=== PATIENT | male | born 1990 | race Caucasian/White ===

== ENCOUNTER → 2020-10-09 15:56 | Outpatient (CLI) | payer OTHER, SELFPAY ==
--- NOTE | 2020-10-09 16:01 | XR_ITS ---
PROCEDURE: XR FOOT WT BEARING RT 3V CLINICAL INDICATION: RT FOOT PAIN COMPARISON: No exams were available for comparison FINDINGS: No fracture or dislocation. No lytic or blastic change. There is normal mineralization. The joint spaces are well-preserved. No significant degenerative/arthritic changes. No erosive changes evident. Other findings:None. IMPRESSION: No acute findings. Dictated by: Fly Garsia MD 10/09/2020 16:24 Fly Garsia MD in [place] 10/09/2020 16:24
== END ==
PROVIDERS: PCP Physician Assistant; Visit Provider Physician Assistant
DX: M79.671 Pain in right foot (principal)
CPT/HCPCS: 73630

== ENCOUNTER → 2020-10-22 14:38 | Outpatient (CLI) | payer OTHER, SELFPAY ==
[2020-10-22 15:31] LABS: Adenovirus,PCR Not Detected (NotDetected); Bordetella Pertussis Not Detected (NotDetected); Chlamydophila Pneumoniae, PCR Not Detected (NotDetected); Coronavirus 229E Not Detected (NotDetected); Coronavirus NL63 Not Detected (NotDetected); Coronavirus OC43 Not Detected (NotDetected); Coronovirus HKU1,PCR Not Detected (NotDetected); Human Metapneumovirus Not Detected (NotDetected); Influenza A, PCR Not Detected (NotDetected); Influenza AH1, 2009 Not Detected (NotDetected); Influenza AH1, PCR Not Detected (NotDetected); Influenza AH3,PCR Not Detected (NotDetected); Influenza B, PCR Not Detected (NotDetected); Mycoplasma Pneumoniae, PCR Not Detected (NotDetected); Parainfluenza 1, PCR Not Detected (NotDetected); Parainfluenza 2, PCR Not Detected (NotDetected); Parainfluenza 3, PCR Not Detected (NotDetected); Parainfluenza 4, PCR Not Detected (NotDetected); Respiratory Syncytial Virus Not Detected (NotDetected); Rhinovirus/Enterovirus Not Detected (NotDetected)
[2020-10-22 15:41] LABS: Basophils % 0.7 % (0.1-2.0); Eosinophils # 0.1 K/mm3 (0.0-0.4); Eosinophils % 1.3 % (0.1-12.0); Hemoglobin 14.4 g/dL (14.1-18.0); Lymphocytes # 1.2 K/mm3 (0.7-4.5); Lymphocytes % 28.2 % (10-50); Mean Corpuscular HGB Conc 35.2 g/dL (31.8-35.4); Mean Corpuscular Hemoglobin 29.1 pg (27.0-31.2); Mean Corpuscular Volume 82.8 fl (80-94); Mean Platelet Volume 7.6 fl (7.4-10.4); Monocytes # 0.2 K/mm3 (0.1-1.0); Monocytes % 4.4 % (1.7-9.3); Neutrophils # 2.9 K/mm3 (1.8-7.8); Neutrophils % 65.4 % (37.0-80.0); Platelet Count 212 K/mm3 (142-424); Red Blood Count 4.95 M/mm3 (4.60-6.20); Red Cell Distribution Width 14.3 % (11.5-17.5); White Blood Count 4.4 K/mm3 (4.8-10.8)
[2020-10-23 07:03] LABS: Coronavirus 19, PCR Detected (NotDetected)
== END ==
PROVIDERS: PCP Family Medicine; Visit Provider Family Medicine
DX: Z20.822 Contact with and (suspected) exposure to COVID-19 (principal); U07.1 COVID-19
CPT/HCPCS: 36415; 85025; 87581; 87633; 87798

== ENCOUNTER → 2020-11-07 09:15 | Outpatient (CLI) | payer OTHER, SELFPAY ==
--- NOTE | 2020-11-07 09:15 | MR_ITS ---
PROCEDURE INFORMATION: Exam: MR Right Lower Extremity Other Than Joint Without and With Contrast; Foot Exam date and time: 11/07/2020 9:15 AM Age: 30 years old Clinical indication: Right; Patient HX: PT C/O lateral RT foot pain x a few months with no injury or trauma. 30 ml prohance used for contrast lot # [id number] exp 04/2023 and lot # [id number] exp 06/2022 TECHNIQUE: Imaging protocol: MR of the Right lower extremity without and with intravenous contrast. Exam focused on the foot. Contrast material: PROHANCE; Contrast volume: 30 ml; Contrast route: IV; COMPARISON: CR XR FOOT WT BEARING RT 3V 10/09/2020 4:03 PM FINDINGS: Bones and cartilage: Unremarkable. Joint spaces: Unremarkable. No joint effusion. LIGAMENTS: Lisfranc ligament: Unremarkable. No evidence of tear. TENDONS: Flexor tendons of foot: Unremarkable. No evidence of tear. Tibialis posterior tendon: Unremarkable as visualized. Peroneal tendons: Mild peroneal tenosynovitis. Mild peroneus longus tendinosis with low-grade partial-thickness intrasubstance tearing. Extensor tendons of foot: Unremarkable. No evidence of tear. Tibialis anterior tendon: Unremarkable as visualized. Tarsal canal (Sinus tarsi): Unremarkable. Tarsal tunnel: Unremarkable. Muscles: Normal muscles. Soft tissues: Lobulated ganglion cyst measuring up to 2.4 cm along the posterior articulation of the distal tibia and fibula. Plantar fascia: Unremarkable as visualized. IMPRESSION: 1. Mild peroneal tenosynovitis. Mild peroneus longus tendinosis with low-grade partial-thickness intrasubstance tearing. 2. No other significant term derangement involving the foot.
--- NOTE | 2020-11-07 09:15 | MR_ITS ---
PROCEDURE INFORMATION: Exam: MR Right Lower Extremity Joint Without and With Contrast; Ankle Exam date and time: 11/07/2020 9:15 AM Age: 30 years old Clinical indication: Ankle; Right; Patient HX: PT C/O lateral RT foot pain x a few months with no injury or trauma. 30 ml prohance used for contrast lot # [id number] exp 04/2023 and lot # [id number] exp 06/2022; Additional info: RT ankle pain TECHNIQUE: Imaging protocol: MR of the Right lower extremity without and with contrast. Exam focused on the ankle. Contrast material: PROHANCE; Contrast volume: 30 ml; Contrast route: IV; COMPARISON: CR XR FOOT WT BEARING RT 3V 10/09/2020 4:03 PM FINDINGS: Bones and cartilage: Unremarkable. Joint spaces: No joint effusion. LIGAMENTS: Distal tibiofibular syndesmosis: Unremarkable. No tear. Anterior talofibular ligament: Unremarkable. No tear. Posterior talofibular ligament: Unremarkable. No tear. Calcaneofibular ligament: Unremarkable. No tear. Deltoid ligament complex: Unremarkable. No tear. TENDONS: Flexor tendons of foot: Unremarkable as visualized. Tibialis posterior tendon: Unremarkable as visualized. Peroneal tendons: Low-grade partial-thickness tearing involving the peroneus longus tendon which shows mild tendinosis. Mild peroneal tenosynovitis. Extensor tendons of foot: Unremarkable as visualized. Tibialis anterior tendon: Unremarkable as visualized. Achilles tendon: Unremarkable as visualized. Tarsal canal (Sinus tarsi): Unremarkable. Normal signal of the fat. Tarsal tunnel: Unremarkable. Muscles: Unremarkable. Soft tissues: Ganglion cyst measuring 2.3 x 1.0 cm posterior to the articulation of the distal tibia and fibula. Plantar fascia: Plantar fascia is unremarkable. IMPRESSION: 1. Low-grade partial-thickness tearing involving the peroneus longus tendon which shows mild tendinosis. Mild peroneal tenosynovitis. 2. Ganglion cyst measuring 2.3 x 1.0 cm posterior to the articulation of the distal tibia and fibula.
== END ==
PROVIDERS: PCP Physician Assistant; Visit Provider Podiatrist
DX: M84.374A Stress fracture, right foot, initial encounter for fracture (principal); M77.51 Other enthesopathy of right foot and ankle; M79.671 Pain in right foot
CPT/HCPCS: 73720; 73723; A9576

== ENCOUNTER → 2022-05-19 16:18 | Outpatient (CLI) | payer OTHER, SELFPAY ==
--- NOTE | 2022-05-19 16:23 | XR_ITS ---
PROCEDURE INFORMATION: Exam: XR Right Foot Exam date and time: 05/19/2022 4:31 PM Age: 32 years old Clinical indication: Pain; Foot; Right; Additional info: Foot pain TECHNIQUE: Imaging protocol: Radiologic exam of the right foot. Views: 3 or more views. COMPARISON: MR FOOT RT WO/W CON 11/07/2020 9:41 AM FINDINGS: Bones/joints: There is no evidence of acute fracture.There is no evidence of malalignment or dislocation. Soft tissues: Normal. IMPRESSION: No acute findings.
--- NOTE | 2022-05-19 16:23 | XR_ITS ---
PROCEDURE INFORMATION: Exam: XR Left Ankle Exam date and time: 05/19/2022 4:31 PM Age: 32 years old Clinical indication: Pain; Foot; Additional info: Foot pain TECHNIQUE: Imaging protocol: Radiologic exam of the left ankle. Views: 3 or more views. COMPARISON: No relevant prior studies available. 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 There is no evidence of acute fracture.There is no evidence of malalignment or dislocation. Soft tissues: Normal. IMPRESSION: 1. 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 2. There is no evidence of acute fracture.There is no evidence of malalignment or dislocation.
--- NOTE | 2022-05-19 16:23 | XR_ITS ---
PROCEDURE INFORMATION: Exam: XR Left Foot Complete; Alignment Exam date and time: 05/19/2022 4:31 PM Age: 32 years old Clinical indication: Pain; Foot; Left; Additional info: Foot pain TECHNIQUE: Imaging protocol: Radiologic exam of the left foot. Views: 3 or more views. COMPARISON: No relevant prior studies available. FINDINGS: Bones/joints: There is no evidence of acute fracture.There is no evidence of malalignment or dislocation. Soft tissues: Normal. IMPRESSION: There is no evidence of acute fracture.There is no evidence of malalignment or dislocation.
--- NOTE | 2022-05-19 16:23 | XR_ITS ---
PROCEDURE INFORMATION: Exam: XR Right Ankle Exam date and time: 05/19/2022 4:31 PM Age: 32 years old Clinical indication: Pain; Foot; ; Additional info: Foot pain TECHNIQUE: Imaging protocol: Radiologic exam of the right ankle. Views: 3 or more views. COMPARISON: MR ANKLE RT WO/W CON 11/07/2020 9:41 AM FINDINGS: Bones/joints: There is no evidence of acute fracture.There is no evidence of malalignment or dislocation. Soft tissues: Normal. IMPRESSION: There is no evidence of acute fracture.There is no evidence of malalignment or dislocation.
== END ==
PROVIDERS: PCP Family Medicine; Visit Provider Nurse Practitioner Family
DX: M79.672 Pain in left foot (principal); M79.671 Pain in right foot; M72.2 Plantar fascial fibromatosis; M25.571 Pain in right ankle and joints of right foot; M25.572 Pain in left ankle and joints of left foot
CPT/HCPCS: 73610; 73630

== ENCOUNTER → 2022-08-29 15:59 | Outpatient (CLI) | payer OTHER, SELFPAY ==
--- NOTE | 2022-08-29 16:06 | XR_ITS ---
PROCEDURE INFORMATION: Exam: XR Right Ankle Exam date and time: 08/29/2022 4:15 PM Age: 32 years old Clinical indication: Pain; Ankle; Right; Patient HX: Weightbearing views. ; Additional info: Ankle pain TECHNIQUE: Imaging protocol: Radiologic exam of the right ankle. Views: 3 or more views. COMPARISON: CR XR ANKLE WT BEARING RT MIN 3V 05/19/2022 4:31 PM FINDINGS: Bones/joints: There is no evidence of acute fracture.There is no evidence of malalignment or dislocation. Soft tissues: Normal. IMPRESSION: There is no evidence of acute fracture.There is no evidence of malalignment or dislocation.
--- NOTE | 2022-08-29 16:06 | XR_ITS ---
PROCEDURE INFORMATION: Exam: XR Right Foot Complete; Alignment Exam date and time: 08/29/2022 4:15 PM Age: 32 years old Clinical indication: Pain; Foot; Right; Patient HX: Weightbearing views. ; Additional info: Foot pain TECHNIQUE: Imaging protocol: Radiologic exam of the right foot. Views: 3 or more views. COMPARISON: CR XR FOOT WT BEARING RT 3V 05/19/2022 4:31 PM FINDINGS: Bones/joints: There is no evidence of acute fracture.There is no evidence of malalignment or dislocation. Soft tissues: Normal. IMPRESSION: There is no evidence of acute fracture.There is no evidence of malalignment or dislocation.
== END ==
PROVIDERS: PCP Family Medicine; Visit Provider Podiatrist
DX: M79.671 Pain in right foot (principal); M25.571 Pain in right ankle and joints of right foot; M77.51 Other enthesopathy of right foot and ankle
CPT/HCPCS: 73610; 73630

== ENCOUNTER → 2022-09-08 16:47 | Outpatient (CLI) | payer OTHER, SELFPAY ==
--- NOTE | 2022-09-08 16:47 | MR_ITS ---
PROCEDURE INFORMATION: Exam: MR Right Lower Extremity Joint Without Contrast; Ankle Exam date and time: 09/08/2022 4:44 PM Age: 32 years old Clinical indication: Pain; Ankle; Right; Additional info: Ankle pain. Swelling x 2 weeks. TECHNIQUE: Imaging protocol: Magnetic resonance imaging of the right lower extremity without contrast. Exam focused on the ankle. COMPARISON: MR ANKLE RT WO/W CON 11/07/2020 9:41 AM FINDINGS: Bones/joints: No acute fracture. No dislocation. Fluid: No significant joint effusion. Small to moderate fluid encircling peroneus longus and brevis tendons. Probable 1.1 x 0.6 x 0.9 cm ganglion cyst along posterior talofibular ligament. Probable 1.3 x 0.6 x 1.1 cm ganglion cyst along lateral aspect of talar neck. LIGAMENTS: Distal tibiofibular syndesmosis: No definite tear. Anterior talofibular ligament: No definite tear. Posterior talofibular ligament: No definite tear. Calcaneofibular ligament: No definite tear. Deltoid ligament complex: No definite tear. TENDONS: Flexor tendons of foot: Intact. Tibialis posterior tendon: Intact. Peroneal tendons: Mild thickening/moderate signal changes within peroneal longus tendon. Extensor tendons of foot: Intact. Tibialis anterior tendon: Intact. Achilles tendon: Intact. Tarsal canal (Sinus tarsi): Unremarkable. Tarsal tunnel: Unremarkable. Soft tissues: Moderate edema within lateral subcutaneous tissues. Plantar fascia: Intact. IMPRESSION: Peroneal tendinosis/tenosynovitis.
== END ==
PROVIDERS: PCP Family Medicine; Visit Provider Podiatrist
DX: M25.571 Pain in right ankle and joints of right foot (principal); M25.371 Other instability, right ankle; M76.71 Peroneal tendinitis, right leg; M77.51 Other enthesopathy of right foot and ankle
CPT/HCPCS: 73721

== ENCOUNTER 2023-01-20 09:41 | Emergency (ER) | payer OTHER, SELFPAY ==
[2023-01-20 09:50] VITALS: BP 144/100; PULSE 90; RESP 22; TEMP 36.8; O2SAT 98; BMI 38.4
--- NOTE | 2023-01-20 09:58 | EXP.UTC ---
Discharge Plan Prescriptions Prescriptions: New prednisone [prednisone] 20 mg tablet 20 mg PO BID 5 Days Qty: 10 0RF amoxicillin-pot clavulanate 875-125 mg Tablet 1 tab PO Q12H Qty: 20 0RF No Action amlodipine 10 mg tablet 10 mg PO DAILY Patient Comments: TAKE 1 TABLET BY MOUTH EVERY DAY omeprazole 40 mg capsule,delayed release(DR/EC) 40 mg PO DAILY atorvastatin 20 mg tablet 20 mg PO DAILY citalopram [Celexa] 20 mg tablet 20 mg PO DAILY Referrals Follow up/Referrals: Cj Roy MD [Primary Care Provider] - See instructions Clinical Impressions Clinical Impression: Sinusitis Instructions Patient Instructions: DI for Sinusitis Discharge ED Provider: Rosie Alvarez [facility] General Stated complaint: SNOW, sinus pressure Time Seen by Provider: 01/20/23 10:02 History of Present Illness Provider Complaint: Headache, sinus pain and pressure X 1 week. Numerous OTC meds without relief. Related Data Home Medications Medication Instructions Recorded Confirmed amlodipine 10 mg tablet 10 mg PO DAILY 10/14/20 01/20/23 atorvastatin 20 mg tablet 20 mg PO DAILY 10/14/20 01/20/23 omeprazole 40 mg capsule,delayed 40 mg PO DAILY 10/14/20 01/20/23 release citalopram 20 mg tablet (Celexa) 20 mg PO DAILY 05/19/22 01/20/23 Previous Rx's Medication Instructions Recorded amoxicillin 875 mg-potassium 1 tab PO Q12H #20 tabs 01/20/23 clavulanate 125 mg tablet prednisone 20 mg tablet 20 mg PO BID 5 days #10 tabs 01/20/23 Allergies Allergy/AdvReac Type Severity Reaction Status Date / Time No Known Allergies Allergy Verified 08/30/22 11:11 [facility] Disclaimer: The information contained in this section may have been updated after the patient was seen, as this information can be updated by other users. Medical History Foot pain, bilateral Surgical History No significant past surgical history Social History Smoking Status: Never smoker alcohol intake: never current occupational status: employed Travel in the last 8 weeks: None ROS Obtained: Yes All systems reviewed & no additional complaints except as documented Constitutional Constitutional: Reports headache(s) and Reports malaise ENT Ears, Nose, Mouth, and Throat: Reports headache(s), Reports post nasal drip, Reports sinus pain and Reports sinus pressure Neurologic Neurologic: Reports headache(s) Physical Exam General General appearance: alert and in no apparent distress Head Head exam: atraumatic, normocephalic and normal inspection Eye Eye exam: Present normal appearance, PERRL and EOMI ENT ENT exam: Present normal exam, normal oropharynx, mucous membranes moist, TM's normal bilaterally and normal external ear exam Expanded ENT Exam Nose exam: Present sinus tenderness Neck Neck exam: Present normal inspection, full ROM and trachea midline; Absent meningismus or lymphadenopathy Chest Chest inspection: Present normal inspection and symmetric chest wall rise; Absent tenderness Respiratory Respiratory exam: Present normal lung sounds bilaterally; Absent respiratory distress Cardiovascular Cardiovascular exam: Present regular rate and normal rhythm; Absent JVD Abdominal Exam Abdominal exam: Present soft and normal bowel sounds; Absent distention, tenderness or guarding Extremities Exam Extremities exam: Present normal inspection, full ROM and normal capillary refill; Absent calf tenderness Back Exam Back exam: Present normal inspection; Absent tenderness Neurological Exam Neurological exam: Present alert and oriented X3 Psychiatric Psychiatric exam: Present normal affect and normal mood Skin Skin exam: Present warm, dry, intact and normal color Lymphatic Lymphatic Findings: no adenopathy Medical Decision Making [facility]
[2023-01-20 10:09] VITALS: BP 144/100; PULSE 90; RESP 22; TEMP 36.8; O2SAT 98
== END 2023-01-20 10:30 | disposition home or self-care (01) ==
PROVIDERS: Emergency Provider Physician Assistant; PCP Family Medicine
DX: J01.90 Acute sinusitis, unspecified (principal); R51.9 Headache, unspecified
CPT/HCPCS: 96372; 99204; 99212; G0463; J1040

== ENCOUNTER 2023-09-13 12:35 | Outpatient (CLI) | payer OTHER, SELFPAY ==
[2023-09-13 12:39] VITALS: BMI 38.4
[2023-09-13 12:40] VITALS: BP 144/74; PULSE 82; RESP 18; O2SAT 99
[2023-09-13] MEDS: 0.9 % SODIUM CHLORIDE 1000ML 2,000 ML 999 ML IV (12:40)
[2023-09-13 12:53] LABS: Microscopic, Urine URINE MICROSCOPIC (MICROSCOPIC)
[2023-09-13 12:56] LABS: Basophils # 0.1 K/mm3 (0-0.2); Basophils % 1.8 % (0.1-2.0); Eosinophils # 0.1 K/mm3 (0.0-0.4); Eosinophils % 2.4 % (0.1-12.0); Hematocrit 39.8 % (42.0-52.0); Hemoglobin 13.6 g/dL (14.1-18.0); Lymphocytes # 2.4 K/mm3 (0.7-4.5); Lymphocytes % 43.7 % (10-50); Mean Corpuscular HGB Conc 34.2 g/dL (31.8-35.4); Mean Corpuscular Volume 87.9 fl (80-94); Mean Platelet Volume 8.3 fl (7.4-10.4); Monocytes # 0.4 K/mm3 (0.1-1.0); Monocytes % 6.6 % (1.7-9.3); Neutrophils # 2.5 K/mm3 (1.8-7.8); Neutrophils % 45.4 % (37.0-80.0); Platelet Count 172 K/mm3 (142-424); Red Blood Count 4.52 M/mm3 (4.60-6.20); Red Cell Distribution Width 14.5 % (11.5-17.5); White Blood Count 5.5 K/mm3 (4.8-10.8)
[2023-09-13 13:08] LABS: Appearance,Urine CLEAR (Clear); Bilirubin,Urine Negative (Negative); Blood, Urine Negative (Negative); Color,Urine DARK YELLOW (Yellow); Glucose,Urine (UA) Negative (Negative); Ketones,Urine Negative (Negative); Leukocyte Esterase,Urine Negative (Negative); Nitrate,Urine Negative (Negative); Protein,Urine Negative (Negative); Specific Gravity, Urine 1.025 (1.005-1.030)
[2023-09-13 13:09] LABS: Chloride 102 mmol/L (98-107)
[2023-09-13 13:10] LABS: Potassium 3.6 mmoL/L (3.5-5.1); Sodium 138 mmol/L (136-145)
[2023-09-13 13:12] LABS: Alanine Aminotransferase 114 U/L (12-78); Aspartate Amino Transferase 78 U/L (17-59); Blood Urea Nitrogen 13 mg/dl (9-20); Creatinine Clearance Estimated 260 mL/min (50-200); Estimated Glomerular Filt Rate 97 ml/min (>60); GFR (African American) 117 ML/MIN (>60)
[2023-09-13 13:13] LABS: Albumin Level 4.4 g/dl (3.5-5.0); Albumin/Globulin Ratio 1.6 (1.1-1.8); Alkaline Phosphatase 73 U/L (38-126); Anion Gap 9.6 mEq/L (5-15); Bilirubin,Total 1.1 mg/dl (0.2-1.3); Calcium 9.2 mg/dl (8.4-10.2); Carbon Dioxide 30 mmol/L (22.0-30.0); Globulin 2.8 g/dL (1.3-3.2); Glucose 102 mg/dl (74-100); Total Protein,Serum 7.2 g/dl (6.3-8.2)
[2023-09-13 13:23] LABS: Bacteria,Urine Trace /lpf; Mucus,Urine 1+ /lpf; Squamous Epithelial Cell,Urine Occasional #/hpf (0-5); WBC,Urine Occasional #/hpf (0-3)
[2023-09-13 14:58] VITALS: BP 156/86; PULSE 85; RESP 18
== END 2023-09-13 14:58 | disposition home or self-care (01) ==
LOC: INF 12:36
PROVIDERS: PCP Family Medicine; Visit Provider Family Medicine
DX: R34 Anuria and oliguria (principal); I10 Essential (primary) hypertension; Z79.899 Other long term (current) drug therapy
CPT/HCPCS: 80053; 81001; 85025; 96360; 96361

== ENCOUNTER 2023-09-19 09:11 | Emergency (ER) | payer OTHER, SELFPAY ==
--- NOTE | 2023-09-19 09:14 | EXP.UTC ---
Discharge Plan Disposition Patient Disposition: Home, Self-Care Condition: Good Prescriptions Prescriptions: New methylprednisolone 4 mg Tablets,Dose Pack 4 mg PO DIRECTED 6 Days Qty: 21 0RF Rx Instructions: Take 1 pack as directed for 6 days guaifenesin [Mucinex] 600 mg tablet extended release 12hr 600 - 1,200 mg PO BIDP PRN (Reason: Congestion) Qty: 30 0RF amoxicillin 875 mg tablet 875 mg PO Q12H Qty: 20 0RF No Action amlodipine 10 mg tablet 10 mg PO DAILY Patient Comments: TAKE 1 TABLET BY MOUTH EVERY DAY atorvastatin 20 mg tablet 20 mg PO DAILY citalopram [Celexa] 20 mg tablet 20 mg PO DAILY hydrochlorothiazide 12.5 mg capsule 12.5 mg PO DAILY Patient Comments: TAKE ONE CAPSULE BY MOUTH EVERY DAY Referrals Follow up/Referrals: Cj Roy MD [Primary Care Provider] - See instructions Activity Restrictions/Add. Instructions Additional Instructions/Restrictions: Drink plenty of fluids. Take tylenol or ibuprofen for pain or fever. Take the medications as directed. Follow up with your regular doctor. GO TO THE ER FOR ANY WORSENING SYMPTOMS Clinical Impressions Clinical Impression: Otitis media, Pharyngitis Instructions Patient Instructions: Middle Ear Infection, DI for Pharyngitis/Tonsillopharyngitis -- Adult, Amoxicillin, Methylprednisolone Discharge ED Provider: Cristóbal Rangel [facility] General Stated complaint: sore throat, right ear pain Time Seen by Provider: 09/19/23 09:14 History of Present Illness Provider Complaint: He states that for the past 5 days he has had worsening right ear pain and sore throat. He denies chest congestion. He does have a dry cough. Related Data Home Medications Medication Instructions Recorded Confirmed amlodipine 10 mg tablet 10 mg PO DAILY 10/14/20 09/19/23 atorvastatin 20 mg tablet 20 mg PO DAILY 10/14/20 09/19/23 citalopram 20 mg tablet (Celexa) 20 mg PO DAILY 05/19/22 09/19/23 hydrochlorothiazide 12.5 mg capsule 12.5 mg PO DAILY 09/19/23 09/19/23 Previous Rx's Medication Instructions Recorded amoxicillin 875 mg tablet 875 mg PO Q12H #20 tabs 09/19/23 guaifenesin 600 mg tablet, 600 - 1,200 mg (1 - 2 x 600 mg) PO 09/19/23 extended release 12 hr (Mucinex) BIDP PRN Congestion #30 tabs methylprednisolone 4 mg tablets in 4 mg PO DIRECTED 6 days #21 tabs 09/19/23 a dose pack Allergies Allergy/AdvReac Type Severity Reaction Status Date / Time No Known Allergies Allergy Verified 09/19/23 09:23 [facility] Disclaimer: The information contained in this section may have been updated after the patient was seen, as this information can be updated by other users. Medical History (Updated 09/19/23 @ 09:39 by Cristóbal Rangel APRN) Anxiety HLD (hyperlipidemia) HTN (hypertension) Foot pain, bilateral Surgical History No significant past surgical history Social History Smoking Status: Never smoker alcohol intake: never current occupational status: employed Travel in the last 8 weeks: None ROS Obtained: Yes All systems reviewed & no additional complaints except as documented Constitutional Constitutional: Denies chills, Denies fever(s) and Reports poor appetite Eyes Eyes: Denies eye discharge ENT Ears, Nose, Mouth, and Throat: Denies ear discharge, Reports otalgia, Denies hearing loss, Denies sinus pain and Reports sore throat Cardiovascular Cardiovascular: Denies chest pain and Denies dyspnea Respiratory Respiratory: Denies chest congestion, Reports cough and Denies dyspnea Gastrointestinal Gastrointestingal: Denies abdominal pain, diarrhea, nausea or vomiting Musculoskeletal Musculoskeletal: Denies arthralgias Integumentary/Breasts Skin/Breast: Denies rash Physical Exam General General appearance: alert and in no apparent distress Head Head exam: atraumatic, normocephalic and normal inspection Eye Eye exam: Present normal appearance; Absent PERRL or EOMI ENT ENT exam: Present mucous membranes moist and normal external ear exam Expanded ENT Exam TM/Canal exam: Bilateral TM: erythema, bulging and effusion Nose exam: Absent sinus tenderness Nasal speculum exam: Bilateral: normal Mouth exam: Present normal external inspection and other; Absent drooling Teeth exam: Present normal inspection Throat exam: Present tonsillar erythema and tonsillomegaly Neck Neck exam: Present normal inspection, full ROM and trachea midline; Absent tenderness, meningismus or lymphadenopathy Chest Chest inspection: Present normal inspection and symmetric chest wall rise; Absent tenderness Respiratory Respiratory exam: Present normal lung sounds bilaterally; Absent respiratory distress, wheezes or stridor Cardiovascular Cardiovascular exam: Present regular rate, normal rhythm and normal heart sounds; Absent tachycardia or irregular rhythm Abdominal Exam Abdominal exam: Present soft and normal bowel sounds; Absent distention, tenderness, guarding, rebound or rigidity Extremities Exam Extremities exam: Present normal inspection and normal capillary refill; Absent tenderness, joint swelling or calf tenderness Back Exam Back exam: Present normal inspection and full ROM; Absent tenderness, CVA tenderness (R) or CVA tenderness (L) Neurological Exam Neurological exam: Present alert, oriented X3, CN II-XII intact, normal gait and reflexes normal; Absent motor sensory deficit Psychiatric Psychiatric exam: Present normal affect and normal mood Skin Skin exam: Present warm, dry, intact and normal color Lymphatic Lymphatic Findings: no adenopathy Medical Decision Making Medical Records Medical records reviewed: No I reviewed the patient's medical records. Mehdi Inquiry Pt receiving controlled substance: No Lab Data Lab results reviewed: Yes I reviewed the patient's lab results.
[2023-09-19 09:17] VITALS: BP 135/79; PULSE 87; RESP 16; TEMP 36.8; O2SAT 97; BMI 39.1
[2023-09-19 09:30] LABS: UTC Strep Screen (Rapid) Negative (Negative)
[2023-09-19 09:39] VITALS: BP 135/79; PULSE 87; RESP 16; TEMP 36.8; O2SAT 97
== END 2023-09-19 09:41 | disposition home or self-care (01) ==
PROVIDERS: Emergency Provider Nurse Practitioner Family; PCP Family Medicine
DX: H66.93 Otitis media, unspecified, bilateral (principal); J02.9 Acute pharyngitis, unspecified; R05.9 Cough, unspecified
CPT/HCPCS: 87880; 99212; 99214; G0463

== ENCOUNTER 2024-09-03 08:13 | Outpatient (CLI) | payer OTHER, SELFPAY ==
[2024-09-03 08:43] LABS: Basophils % 0.5 % (0.1-2.0); Eosinophils # 0.1 Kmm3 (0.0-0.4); Eosinophils % 1.8 % (0.1-12.0); Hematocrit 42.9 % (42.0-52.0); Hemoglobin 14.3 g/dL (14.1-18.0); Immature Granulocytes # 0.02 10^3uL; Immature Granulocytes % 0.4 %; Lymphocytes # 2.4 K/mm3 (0.7-4.5); Lymphocytes % 44.3 % (10-50); Mean Corpuscular HGB Conc 33.3 g/dL (31.8-35.4); Mean Corpuscular Hemoglobin 28.6 pg (27.0-31.2); Mean Corpuscular Volume 85.8 fl (80-94); Mean Platelet Volume 8.7 fl (7.4-10.4); Monocytes # 0.4 K/mm3 (0.1-1.0); Monocytes % 6.4 % (1.7-9.3); Neutrophils # 2.5 K/mm3 (1.8-7.8); Neutrophils % 46.6 % (37.0-80.0); Nucleated Red Blood Cells # 0 10^3/uL; Nucleated Red Blood Cells % 0 %; Platelet Count 257 K/mm3 (142-424); Red Cell Distribution Width 13.3 % (11.5-17.5); Red Cell Distribution Width-SD 41.6 fL; White Blood Count 5.5 K/mm3 (4.8-10.8)
[2024-09-03 08:49] LABS: Albumin Level 4.5 g/dl (3.5-5.0); Chloride 104 mmol/L (98-107)
[2024-09-03 08:50] LABS: Potassium 4.2 mmoL/L (3.5-5.1); Sodium 143 mmol/L (136-145)
[2024-09-03 08:52] LABS: Alanine Aminotransferase 86 U/L (12-78); Albumin/Globulin Ratio 1.7 (1.1-1.8); Alkaline Phosphatase 67 U/L (38-126); Anion Gap 15.2 mEq/L (5-15); Aspartate Amino Transferase 44 U/L (17-59); Bilirubin,Total 0.5 mg/dl (0.2-1.3); Blood Urea Nitrogen 15 mg/dl (9-20); Carbon Dioxide 28 mmol/L (22.0-30.0); Cholesterol 112 mg/dl (140-200); Estimated Glomerular Filt Rate 96 ml/min (>60); GFR (African American) 116 ML/MIN (>60); Globulin 2.6 g/dL (1.3-3.2); Total Protein,Serum 7.1 g/dl (6.3-8.2); Triglycerides 140 mg/dl (30-150); VLDL Cholesterol 28 mg/dL (0-40)
[2024-09-03 08:53] LABS: Calcium 9.2 mg/dl (8.4-10.2); Chol/HDL Ratio 3.9 (1-3.5); Glucose 109 mg/dl (74-100); HDL Cholesterol 29 mg/dl (40-60)
[2024-09-03 09:04] LABS: Direct LDL Cholesterol 51.73 mg/dL (100-129)
[2024-09-03 09:24] LABS: Thyroid Stimulating Hormone 1.95 uIU/mL (0.465-4.68)
[2024-09-03 10:41] LABS: Microalbumin/Creatinine Ratio 4.3
[2024-09-03 10:46] LABS: Creatinine,Urine Random 260 mg/dL (Not Estab.)
== END 2024-09-03 23:59 | disposition home or self-care (01) ==
LOC: LAB 08:13
PROVIDERS: PCP Family Medicine; Visit Provider Family Medicine
DX: E78.5 Hyperlipidemia, unspecified (principal); I10 Essential (primary) hypertension; D64.9 Anemia, unspecified; R79.89 Other specified abnormal findings of blood chemistry
CPT/HCPCS: 36415; 80053; 80061; 82043; 82570; 84443; 85025